=== PATIENT | female | born 2000 | race Caucasian/White ===

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

== ENCOUNTER → 2023-03-05 | Outpatient (CLI) | payer OTHER ==
--- NOTE | 2023-03-05 12:28 | MR ---
EXAMINATION TYPE: MR lumbar spine wo con DATE OF EXAM: 03/05/2023 COMPARISON: NONE HISTORY: Low back pain. TECHNIQUE: T1 and T2 axial and sagittal images of the lumbar spine are submitted. FINDINGS: There is no abnormal signal seen within the visualized spinal cord or paraspinal soft tissu es. At L1-2 there is no evidence of degenerative disc disease, disc herniation, canal stenosis, or forami nal encroachment. At L2-3 there is no evidence of degenerative disc disease, disc herniation, canal stenosis, or forami nal encroachment. At L3-4 there is no evidence of degenerative disc disease, disc herniation, canal stenosis, or forami nal encroachment At L4-5 there is no degenerative disc disease but there is a broad-based small central disc herniatio n with mild effacement of thecal sac. No foraminal encroachment. At L5-S1 there is no evidence of degenerative disc disease, disc herniation, canal stenosis, or yash inal encroachment. Cannot exclude a spondylolysis of L5 with no evidence of spondylolisthesis. This c ould be evaluated with short-term follow-up CT scan. IMPRESSION: 1. Small broad-based disc herniation L4-5 with mild effacement of thecal sac. No foraminal encroachme nt.
== END | disposition home or self-care (01) ==
LOC: RADMRIMAIN 08:17
PROVIDERS: ATTEND Physical Medicine & Rehabilitation
DX: S39.012D Strain of muscle, fascia and tendon of lower back, subsequent encounter (principal); M51.26 Other intervertebral disc displacement, lumbar region
CPT/HCPCS: 72148